=== PATIENT | male | born 1945 | race Caucasian/White ===

== ENCOUNTER → 2017-07-19 | Outpatient (CLI) | payer OTHER ==
[~2017-07-19] MED LIST: OMNIPAQUE 350 MG/ML, 150 ML BOTTLE ONE
== END ==
LOC: RAD 14:21
PROVIDERS: ATTEND Urology
DX: N40.0 Benign prostatic hyperplasia without lower urinary tract symptoms (principal); M51.36 Other intervertebral disc degeneration, lumbar region; M47.816 Spondylosis without myelopathy or radiculopathy, lumbar region; Z85.51 Personal history of malignant neoplasm of bladder
CPT/HCPCS: 36415; 74178; 82565; Q9967